=== PATIENT | female | born 1990 | race Caucasian/White ===

== ENCOUNTER 2018-12-01 15:11 | Emergency (ER) | payer BC ==
[~2018-12-01 15:11] MED LIST: Iopamidol 300 61% 100 ML VIAL FS ONE
[2018-12-01] MEDS ORDERED: Ondansetron PF 4 MG/2 ML Vial ONE (15:54)
[2018-12-01] MEDS ORDERED: Morphine 4 MG/ML VIAL ONE (15:54)
[2018-12-01 16:05] LABS: #Basophils 0.1 thou/uL (0.0-0.2); #Eosinphils 0.3 thou/uL (0.0-0.7); #Lymphocytes 2.7 thou/uL (1.20-3.40); #Monocytes 0.5 thou/uL (0.11-0.59); #Neutrophils 6.3 thou/uL (1.40-6.50); %Basophils 0.8 % (0.0-1.0); %Eosinophils 3.1 % (0.0-10.0); %Monocytes 5.3 % (0.0-10.0); %Neutrophils 63.8 % (42.0-75.0); Hemoglobin 11.8 g/dL (12.0-16.0); Mean Corpuscular HGB CONC 32.4 g/dL (32.0-36.0); Mean Corpuscular Hemoglobin 28.2 pg (27.0-31.0); Mean Corpuscular Volume 87.2 fL (78.0-98.0); Mean Platelet Volume 7.6 fL (7.4-10.4); Platelet Count 295 thou/uL (130-400); RBC Distribution Width 12.8 % (11.5-14.5); Red Blood Cell (RBC) Count 4.17 mill/uL (4.20-5.40); White Blood Cell (WBC) Count 9.8 thou/uL (4.8-10.8)
[2018-12-01 16:13] LABS: BHCG - Serum Negative (NEGATIVE); Pregs Control Background? CLEAR/WHITE (CLR/WHITE); Pregs Control Bar Appear? YES (CONTROL BAR)
[2018-12-01 16:19] LABS: ALT (SGPT) 10 U/L (8-55); AST (SGOT) 11 U/L (5-34); Albumin 4.1 g/dL (3.5-5.0); Alkaline Phosphatase 78 U/L (40-150); Anion Gap 13 mmol/L (10-20); BUN (Urea Nitrogen) 7 mg/dL (7.0-18.7); Bilirubin, Total 0.2 mg/dL (0.2-1.2); Calc. Creatinine Clearance 0 mL/min (70-130); Calcium 8.8 mg/dL (7.8-10.44); Carbon Dioxide 24 mmol/L (22-29); Chloride 108 mmol/L (98-107); Estimated GFR-MDRD 65; Globulin 2.6 g/dL (2.4-3.5); Glucose 113 mg/dL (70-105); Lipase 27 U/L (8-78); Potassium 3.9 mmol/L (3.5-5.1); Protein, Total 6.7 g/dL (6.0-8.3); Sodium 141 mmol/L (136-145)
--- NOTE | 2018-12-01 17:04 | CT ---
CT ABDOMEN AND PELVIS WITH IV CONTRAST 12/01/2018 CLINICAL INFORMATION: Right lower quadrant abdominal pain COMPARISON: CTA abdomen and pelvis on 05/28/2015 Technique: Multiple contiguous axial CT images are obtained through the abdomen and pelvis with IV contrast. Cor onal reformatted images are provided. FINDINGS: Lower Chest: within normal limits. Vessels: Normal aorta is normal in caliber. Abdomen: Portal vein:Patent Gallbladder: Postcholecystectomy changes are noted. Liver: The dome of the liver was incompletely imaged, the liver otherwise demonstrates a normal appea santos. Pancreas: within normal limits. Spleen: within normal limits. Adrenals: within normal limits. Kidneys: within normal limits. Peritoneum: Trace amount of free fluid is seen in the pelvis which may be physiologic. Bowel: Normal caliber.The appendix is visualized and normal in caliber. Mesentery and Retroperitoneum: Surgical clips are seen in the epigastric region. No enlarged mesenter ic or retroperitoneal lymph nodes are seen. Abdominal Wall: within normal limits. Pelvis: Reproductive Organs: No pelvic masses. Pelvis within normal limits. Bladder: within normal limits. Bones: within normal limits. IMPRESSION: 1. No acute findings are seen in the abdomen or pelvis. 2. Postcholecystectomy changes. 3. Trace free fluid in the pelvis probably physiologic in origin. 4. No CT findings to suggest appendicitis.
[2018-12-01] MEDS ORDERED: Ketorolac Tromethamine 30 MG/ML VIAL ONE (17:40)
--- NOTE | 2018-12-01 19:28 | ULT ---
PELVIC ULTRASOUND: 12/01/18 HISTORY: Patient with pelvic pain. Multiple longitudinal and transverse images of the pelvis is obtained using multihertz curvilinear t ransducer. Real time, color flow, and spectral waveform Doppler analysis used to evaluate the pelvis. The uterus measures 8.2 x 4.2 x 6.1 cm. The endometrium is of normal thickness measuring 9 mm. No chika dence of uterine masses seen. Both ovaries visualized with good blood flow. Right ovary measures 2.3 x 1.5 x 2.6 cm while the left ovary measures 2.1 x 3.0 x 2.5 cm. Right ovarian follicle is visualized measuring approximately 1.4 cm. No evidence of free pelvic fluid seen. IMPRESSION: Normal pelvic ultrasound. POS: ANDREW
== END 2018-12-01 19:30 | disposition home or self-care (01) ==
LOC: SCSER 15:11
DX: R10.31 Right lower quadrant pain (principal); R11.2 Nausea with vomiting, unspecified; F41.9 Anxiety disorder, unspecified; F32.9 Major depressive disorder, single episode, unspecified; Z79.899 Other long term (current) drug therapy
CPT/HCPCS: 36415; 74177; 76856; 80053; 83690; 84703; 85025; 93976; 96361; 96374; 96375; J1885; J2270; J2405

== ENCOUNTER 2019-12-14 13:45 | Outpatient (CLI) | payer BC ==
--- NOTE | 2019-12-14 14:54 | MMO ---
Bilateral MAMMO Bilat Diag DDI+ELYSIA. CLINICAL HISTORY: Patient is 29 years old and is seen for diagnostic exam and palpable abnormality in the right breast. The patient has no family history of breast cancer. The patient has no personal history of cancer. The patient has a history of bilateral Breast reduction in 2004. VIEWS: The views performed were: bilateral craniocaudal with tomosynthesis; bilateral mediolateral oblique with tomosynthesis; bilateral mediolateral with tomosynthesis; bilateral exaggerated craniocaudal; and left exaggerated craniocaudal spot compression with tomosynthesis. FILMS COMPARED: The present examination has been compared to a prior imaging study performed at [facility] on 12/14/2019. This study has been interpreted with the assistance of computer-aided detection. MAMMOGRAM FINDINGS: The breasts are heterogeneously dense, which could obscure a lesion on mammography. There are no suspicious masses, suspicious calcifications, or new areas of architectural distortion. No sonographic abnormality is seen in the region of palpable abnormality. IMPRESSION: THERE IS NO MAMMOGRAPHIC EVIDENCE OF MALIGNANCY. THE FINDINGS AND RECOMMENDATIONS WERE DISCUSSED WITH THE PATIENT PRIOR TO HER LEAVING THE CENTER. NO MAMMOGRAPHIC OR SONOGRAPHIC ABNORMALITIES ARE PRESENT TO CORRELATE WITH THE SITE OF PALPABLE CONCERN. THE PATIENT WILL BE REFERRED BACK TO HER CLINICIAN FOR FURTHER CARE. BIOPSY SHOULD NOT BE PRECLUDED BY THE ABSCENCE OF IMAGING FINDINGS, IN THE SETTING OF CLINICAL CONCERN FOR MALIGNANCY. A ROUTINE FOLLOW-UP MAMMOGRAM AT AGE 38 IS RECOMMENDED. THE RESULTS OF THIS EXAM WERE SENT TO THE PATIENT. ACR BI-RADS Category 1 - Negative MAMMOGRAPHY NOTE: 1. A negative mammogram report should not delay a biopsy if a dominant of clinically suspicious mass is present. 2. Approximately 10% to 15% of breast cancers are not detected by mammography. 3. Adenosis and dense breasts may obscure an underlying neoplasm. Reported by: DELMY HUTTON MD Electonically Signed: [id number]
--- NOTE | 2019-12-14 15:41 | ULT ---
RIGHT BREAST DIAGNOSTIC ULTRASOUND: 12/14/19 INDICATION: Palpable abnormality within the upper outer aspect of the right breast. FINDINGS: No suspicious sonographic abnormality seen in the right breast at 9 o'clock, 10 o'clock or 11 o'clock position. IMPRESSION: BIRADS 1: Negative Routine annual screening mammography (for women over age 40). No suspicious sonographic abnormality seen within palpable region of interest in the 9 through 11 o'clock position. POS: ANDERSONDI
== END 2019-12-14 13:46 | disposition home or self-care (01) ==
LOC: BICMAMMO 13:45
PROVIDERS: ATTEND Student in an Organized Health Care Education/Training Program
DX: N63.10 Unspecified lump in the right breast, unspecified quadrant (principal)
CPT/HCPCS: 77066; G0279

== ENCOUNTER 2020-04-28 09:09 | Day surgery (SDC) | payer BC, OTHER ==
[2020-04-23 11:41] LABS: #Basophils 0.1 thou/uL (0.0-0.2); #Eosinphils 0.4 thou/uL (0.0-0.7); #Lymphocytes 2.8 thou/uL (1.20-3.40); #Monocytes 0.5 thou/uL (0.11-0.59); %Basophils 0.7 % (0.0-1.0); %Eosinophils 4.2 % (0.0-10.0); %Lymphocytes 31.8 % (21.0-51.0); %Monocytes 5.4 % (0.0-10.0); Hemoglobin 13.1 g/dL (12.0-16.0); Mean Corpuscular HGB CONC 33.1 g/dL (32.0-36.0); Mean Corpuscular Hemoglobin 29.2 pg (27.0-31.0); Mean Corpuscular Volume 88.2 fL (78.0-98.0); Mean Platelet Volume 8.5 fL (7.4-10.4); Platelet Count 347 thou/uL (130-400); Red Blood Cell (RBC) Count 4.49 mill/uL (4.20-5.40); White Blood Cell (WBC) Count 8.7 thou/uL (4.8-10.8)
[2020-04-23 13:16] LABS: BHCG - Serum Negative (NEGATIVE); Pregs Control Background? CLEAR/WHITE (CLR/WHITE); Pregs Control Bar Appear? YES (CONTROL BAR)
[2020-04-23 16:08] VITALS: BMI 25.8
[2020-04-23 16:30] LABS: SARS-CoV-2 MS2 Positive; SARS-CoV-2 N Gene Negative; SARS-CoV-2 S Gene Negative; SARS-CoV-2 by NAA Not Detected (NotDetected); SARS-CoV-2 orf1ab Negative
[~2020-04-28 09:09] MED LIST changes: +Dexamethasone 20 MG/5 ML VIAL ONE; +Glycopyrrolate 0.2 MG/ML 5 ML SYRINGE ONE; -Iopamidol 300 61% 100 ML VIAL FS ONE; +Ketorolac Tromethamine 30 MG/ML VIAL ONE; +Lidocaine 1% PF 5 ML VIAL ONE; +Ondansetron PF 4 MG/2 ML Vial ONE; +PROPOFOL 200 MG/20 ML VIAL ONE; +Rocuronium Bromide 10 MG/ML (10ML VIAL) ONE
[2020-04-28] MEDS ORDERED: Gabapentin 300 MG CAP ONE (09:31)
[2020-04-28] MEDS ORDERED: Famotidine/PF 20 mg/2ml Vial ONE (09:32)
[2020-04-28] MEDS ORDERED: CeleCOXIB 100 MG CAP ONE (09:32)
[2020-04-28] MEDS ORDERED: Midazolam HCl 2 mg/2 ml Vial ONE ×2 (10:30→12:44)
[2020-04-28] MEDS ORDERED: Scopolamine 1.5 mg/72 hour Patch ONE (10:30)
[2020-04-28] MEDS ORDERED: Fentanyl 250 MCG/5 ML VIAL ONE (12:44)
[2020-04-28] MEDS ORDERED: Bupivacaine PF 0.5% 30 ML VIAL ONE (13:03)
[2020-04-28] MEDS ORDERED: Lidocaine 1% w/Epinephrine 1:100K 20 ML VIAL ONE (13:03)
[2020-04-28] MEDS ORDERED: Tranexamic Acid 1,000 MG/10 ML VIAL ONE (14:28)
[2020-04-28] MEDS ORDERED: Fentanyl 100 MCG/2 ML VIAL ONE ×2 (15:52→16:21)
[2020-04-28] MEDS ORDERED: Morphine 4 MG/ML VIAL ONE (16:37)
[2020-04-28] MEDS ORDERED: HYDROcodone/Acetaminophen 5/325 mg Tablet ONE (17:29)
[2020-04-28] MEDS ORDERED: Ondansetron ODT 4 MG TAB ONE (17:47)
--- NOTE | 2020-04-29 13:21 | OP ---
DATE OF PROCEDURE: 04/28/2020 PROCEDURE: Robotic-assisted laparoscopic myomectomy. ANESTHESIA: General endotracheal. COMPUTER SCIENCES PROFESSOR SURGEON: Hoda Gomez. PREOPERATIVE DIAGNOSES: Uterine fibroids and pelvic pain. POSTOPERATIVE DIAGNOSES: Uterine fibroids and pelvic pain plus dilated colon. PATHOLOGY: Uterine fibroids x7. ESTIMATED BLOOD LOSS: 20 mL. IVF: 1400 mL of crystalloid. URINE OUTPUT: 50 mL of clear urine. COMPLICATIONS: None. DRAINS: None. FINDINGS: On exam under anesthesia, a regular contoured uterus approximately 12-week size was noted. On intraabdominal survey, there were multiple subserosal fibroids ranging from 1 to 3 cm in diameter. There was a total of seven of these that were resected. The fallopian tubes and ovaries were normal bilaterally. There was a severely-dilated colon. The entirety of the colon was at least three times a size of a normal colon. OPERATIVE INDICATIONS: The patient had a pelvic pressure for the last approximately six months. She was found to have fibroids at that time and possible degeneration of these fibroids, she was not managed initially with nonsteroidal anti-inflammatories and oral contraceptives continuously; however, this pain persisted requiring patient to continue to take nonsteroidal anti-inflammatories on a daily basis. The patient desired definitive management with surgery of her uterine fibroids. DESCRIPTION OF PROCEDURE: The patient was taken to the operating room, where general anesthesia was obtained without difficulty. The patient was prepped and draped in a sterile fashion in the dorsal lithotomy position. Solomon catheter was placed in the bladder. A speculum was placed in the vagina. The anterior lip of the cervix was grasped with a single-tooth tenaculum. The diagnostic AIDA tip was placed into the uterus and the balloon was inflated. The speculum and tenaculum were removed out of the vagina and legs were placed in low lithotomy. Attention was turned to the abdomen. A mixture of 0.5% Marcaine with epinephrine and 1% lidocaine plain was infiltrated into the umbilicus. A 12 mm skin incision was made and the Veress needle was passed into the abdomen noting an opening pressure of 0 mmHg. Pneumoperitoneum was obtained without difficulty. The Veress needle was removed. The 12 mm trocar was advanced into the abdomen and confirmed placement with the robotic camera. Steep Trendelenburg was obtained. The above findings were then noted. At that time, the 12 mm trocar was removed and the umbilical incision was extended to 3 cm. The mini James was placed into that incision and the mini GelPOINT was affixed over the James with a [address]. Prior to this, the 14 cm Applied medical bag was placed into the upper abdomen with ties around that was cinched up. At that time, right and left lower quadrant robotic trocars were placed under direct visualization after infiltrating with anesthetic mixture. A right upper quadrant 11 mm port was also placed under direct visualization after infiltrating with the anesthetic. The surgeon console then took control. The uterus was anteverted and the fundal subserosal fibroid was identified. This was slightly off to the right. The serosa was incised with the scissors using monopolar energy and the fibroid was identified. The retail event and sales assistant used 5 mm tenaculum to grab the fibroid and pull, and the myometrial fibers were dissected off the fibroid, mostly with blunt dissection and pushing with the scissors as well as fenestrated. Traction-countertraction was also used on edges of the incision to help deliver the fibroid. As the base of the fibroid came out, the base of fibers was then cauterized with the scissors and incised and then hemostasis was achieved of this area. Prior to incising over this fundal fibroid, mixture of 20 units of vasopressin in 100 mL of sterile saline were drawn up and a spinal needle was used to enter into the abdomen and then the needle was guided with my fenestrator to inject the serosa overlying the fibroids, where the incision would be made and 15 mL of the diluted vasopressin was then infiltrated into the fibroids. There was additional anterior fibroid that had two separate fibroids, but the serosa was incised overlying these. The tenaculum was used to grasp these fibroids and then these fibroids easily shelled out with blunt pushing and spreading, they were approximately 2 cm each. These fibroids were placed in the posterior cul-de-sac. Account was kept of the fibroids that were present. There were two additional anterior fibroids that were incised across, these were subserosal as well and easily shelled out. Then there was one lower uterine segment anterior fibroid that was about 3 cm, this required incising on the vesicouterine peritoneum with the scissors and then incising over the serosa and grabbing that fibroid. This was overlying more laterally and there was slight concern for entry into the uterine vessels. Therefore, this fibroid was gently pulled away and peeled away in order to not disturb the uterine arteries, that effort was successful and there was not an excessive amount of bleeding. Cautery was performed of the base of this larger fibroid on the anterior lower uterine segment and then the attaching fibers were incised and after that, the fibroid had been removed. There were no other visible fibroids and the uterus was thoroughly palpated to identify any intramural fibroids, which had not previously been seen on ultrasound, which none were identified at that time. The scissors were traded out for the needle dinkey driver and a 2-0 Stratafix barbed suture was used to close each serosal incision as well as the underlying myometrial layers. A deeper layer was placed on the larger fibroids in the myometrium and then run back with a serosal layer for excellent closure. The more superficial fibroids that were smaller were closed altogether in one suturing layer with a 2-0 barbed Stratafix suture and there was a slight amount of oozing from the initial fibroid that was removed on the fundus, therefore, FloSeal was used after cautery was performed on the serosal edges and after holding pressure for several minutes and the FloSeal to that area was noted to be hemostatic. At that time, the bag was brought down into the pelvis and the strings were cut, and the bag was deployed open and all seven fibroids were identified and placed into the bag securely. The bag was then brought together at the top and pulled out of the mini GelPOINT by the retail event and sales assistant. The low pressure check was performed as well as copious irrigation and hemostasis was noted to be excellent. All instruments were then removed out of the abdomen and the robot was then docked. The patient was flattened out and the bag was easily delivered out of the mini James. No morcellation was necessary. At that time, the James was removed out of the abdomen and the fascia of the umbilical incision was closed with 0 PDS in a running fashion. The skin was closed with 4-0 Monocryl in a subcuticular fashion and Dermabond was applied as well as pressure dressing. The patient tolerated the procedure well. Sponge, lap, and needle counts were correct x2. The patient was taken to recovery room in stable condition. The patient received Ancef 2 g prior to the procedure. Job ID: [id number]
== END 2020-04-28 18:55 | disposition home or self-care (01) ==
LOC: SDC 09:09
PROVIDERS: ATTEND Student in an Organized Health Care Education/Training Program
PROC: 0UB94ZZ Excision of Uterus, Percutaneous Endoscopic Approach (ICD-10-PCS; principal; 2020-04-28)
DX: D25.2 Subserosal leiomyoma of uterus (principal); K21.9 Gastro-esophageal reflux disease without esophagitis; F32.9 Major depressive disorder, single episode, unspecified; F41.9 Anxiety disorder, unspecified; Z79.899 Other long term (current) drug therapy; Z88.8 Allergy status to other drugs, medicaments and biological substances
CPT/HCPCS: 36415; 84703; 85025; 86850; 86900; 86901; 87635; 88305; J0690; J1100; J1885; J2250; J2270; J2405; J2704; J3010; Q0162; S0020; S0028; U0003

== ENCOUNTER 2023-09-05 10:04 | Outpatient (CLI) | payer OTHER ==
[2023-09-05] MEDS ORDERED: Iopamidol 370 76% 100 ML VIAL ONE (13:32)
== END 2023-09-05 10:05 | disposition home or self-care (01) ==
LOC: CT 10:04
PROVIDERS: ATTEND Physician Assistant Medical
DX: K21.9 Gastro-esophageal reflux disease without esophagitis (principal); E53.8 Deficiency of other specified B group vitamins; E55.9 Vitamin D deficiency, unspecified; R13.14 Dysphagia, pharyngoesophageal phase; R11.2 Nausea with vomiting, unspecified
CPT/HCPCS: 74170